=== PATIENT | female | born 1995 ===

== ENCOUNTER 2022-08-27 16:38 | Emergency (ER) | payer OTHER ==
[~2022-08-27] VITALS: Ht 165.1 cm; Wt 78.5 kg
== END 2022-08-27 19:48 | disposition home or self-care (01) ==
LOC: ER 16:38
DX: O20.9 Hemorrhage in early pregnancy, unspecified (principal); Z3A.01 Less than 8 weeks gestation of pregnancy; Z88.2 Allergy status to sulfonamides

== ENCOUNTER 2022-11-28 12:48 | Outpatient (CLI) | payer OTHER | END 2022-11-28 14:27 | disposition home or self-care (01) | LOC: PRENATAL 12:48 | PROVIDERS: ATTEND Obstetrics & Gynecology Maternal & Fetal Medicine | DX: O35.3XX0 Maternal care for (suspected) damage to fetus from viral disease in mother, not applicable or unspecified (principal); O44.00 Complete placenta previa NOS or without hemorrhage, unspecified trimester; Z3A.19 19 weeks gestation of pregnancy ==

== ENCOUNTER 2022-12-21 13:58 | Outpatient (CLI) | payer OTHER ==
[2022-12-21] MEDS ORDERED: DIALYVITE 800-1 EACH PO (14:06)
[2022-12-21] MEDS ORDERED: OCUVITE EYE HE1 EACH PO (14:06)
[2022-12-21] MEDS ORDERED: PRENATAL TABLE1 EAC1 PO (14:06)
== END 2022-12-22 14:31 | disposition home or self-care (01) ==
LOC: OBS/DEL 13:58
PROVIDERS: Obstetrics & Gynecology; ATTEND Obstetrics & Gynecology
DX: O26.852 Spotting complicating pregnancy, second trimester (principal); O23.32 Infections of other parts of urinary tract in pregnancy, second trimester; B95.7 Other staphylococcus as the cause of diseases classified elsewhere; N39.0 Urinary tract infection, site not specified; Z3A.22 22 weeks gestation of pregnancy; Z88.2 Allergy status to sulfonamides

== ENCOUNTER 2023-04-14 14:11 | Outpatient (CLI) | payer OTHER ==
[~2023-04-14 14:11] MED LIST: DIALYVITE 800-1 EACH PO; OCUVITE EYE HE1 EACH PO; PRENATAL TABLE1 EAC1 PO
[2023-04-14 16:17] LABS: URINE APPEARANCE Clear; URINE BILIRRUBIN Negative (NEGATIVE); URINE BLOOD Large; URINE COLOR Dark Yellow; URINE GLUCOSE Negative (NEGATIVE); URINE LEUKOCYTE Trace; URINE NITRATE Negative; URINE PROTEIN Negative (NEGATIVE)
[2023-04-14 16:20] LABS: HEMATOCRIT 36.9 % (36.0-45.00); HEMOGLOBIN 12.9 g/dL (12.0-15.00); MEAN CELL VOLUME 90.2 fL (80.00-100.00); MEAN CORPUSCULAR HEMOGLOBIN 31.6 pg (27.00-32.0); MEAN CORPUSCULAR HGB CONC 35.1 g/dl (32.0-36.0); PLATELET COUNT 160 K/uL (150-450); RED BLOOD COUNT 4.09 M/uL (4.00-6.00); RED CELL DISTRIBUTION WIDTH 12.6 % (11.5-14.5)
[2023-04-14 16:21] LABS: URINE BACTERIA 201.5 uL (0.0-1933); URINE EPITHELIAL CELLS 13.2 uL (0.0-38.8); URINE WBC 8.8 uL (0.0-23.2)
== END 2023-04-14 18:49 | disposition home or self-care (01) ==
LOC: OBS/DEL 14:11
PROVIDERS: ATTEND Obstetrics & Gynecology
DX: O26.849 Uterine size-date discrepancy, unspecified trimester (principal); O36.8199 Decreased fetal movements, unspecified trimester, other fetus; O26.93 Pregnancy related conditions, unspecified, third trimester; Z3A.38 38 weeks gestation of pregnancy

== ENCOUNTER 2023-04-22 10:35 | Inpatient (IN) | payer OTHER ==
[~2023-04-22] VITALS: Ht 165.1 cm; Wt 3.2 kg
[2023-04-22 11:38] LABS: URINE APPEARANCE Clear; URINE BILIRRUBIN Negative (NEGATIVE); URINE BLOOD Negative; URINE COLOR Yellow; URINE GLUCOSE Negative (NEGATIVE); URINE LEUKOCYTE Negative; URINE NITRATE Negative; URINE PROTEIN Negative (NEGATIVE); URINE UROBILINOGEN 0.2 E.U./dl
[2023-04-22 11:40] LABS: URINE BACTERIA 318.6 uL (0.0-1933); URINE EPITHELIAL CELLS 19.3 uL (0.0-38.8); URINE RBC 2.2 uL (0.0-20.8); URINE WBC 14.8 uL (0.0-23.2)
[2023-04-22 11:42] LABS: HEMATOCRIT 37.3 % (36.0-45.00); HEMOGLOBIN 12.8 g/dL (12.0-15.00); MEAN CELL VOLUME 91.9 fL (80.00-100.00); MEAN CORPUSCULAR HEMOGLOBIN 31.7 pg (27.00-32.0); MEAN CORPUSCULAR HGB CONC 34.4 g/dl (32.0-36.0); PLATELET COUNT 189 K/uL (150-450); RED BLOOD COUNT 4.06 M/uL (4.00-6.00); RED CELL DISTRIBUTION WIDTH 12.6 % (11.5-14.5)
[2023-04-22 12:04] LABS: INR 0.95
[2023-04-22 12:08] LABS: BILIRUBIN TOTAL 0.35 mg/dL (0.3-1.2); CALCIUM 9.2 mg/dL (8.5-10.1); CREATININE SERUM 0.57 mg/dL (0.55-1.02); GFR 127.23; GLOBULINA 4.1 G/DL (2.4-3.5); POTASSIUM 4.45 mEq/L (3.5-5.1); TOTAL PROTEIN 7.1 gm/dL (6.4-8.2)
[2023-04-23 15:00] LABS: ABG pCO2 68.8 mmHg (35-45)
[2023-04-23 15:01] LABS: ABG PO2 17.7 mmHg (80-100); BASE EXCESS -3.1 mmol/l; BICARBONATE 26.6 mmol/l (23-25); Tco2 28.7 mmol/l; o2 21 %
[2023-04-23 18:29] LABS: HEMATOCRIT 33.5 % (36.0-45.00); HEMOGLOBIN 11.4 g/dL (12.0-15.00); MEAN CELL VOLUME 91.6 fL (80.00-100.00); MEAN CORPUSCULAR HEMOGLOBIN 31.2 pg (27.00-32.0); MEAN CORPUSCULAR HGB CONC 34.1 g/dl (32.0-36.0); PLATELET COUNT 177 K/uL (150-450); RED BLOOD COUNT 3.66 M/uL (4.00-6.00); RED CELL DISTRIBUTION WIDTH 12.2 % (11.5-14.5)
== END 2023-04-25 16:11 | disposition home or self-care (01) | DRG 788 ==
LOC: LDR 10:35 → O/R 04-23 12:32 → OB/GYN 04-23 13:44
PROVIDERS: ADMIT Obstetrics & Gynecology; ATTEND Obstetrics & Gynecology
PROC: 3E0P7VZ Introduction of Hormone into Female Reproductive, Via Natural or Artificial Opening (ICD-10-PCS; 2023-04-22)
PROC: 4A1HXCZ Monitoring of Products of Conception, Cardiac Rate, External Approach (ICD-10-PCS; 2023-04-22)
PROC: 3E033VJ Introduction of Other Hormone into Peripheral Vein, Percutaneous Approach (ICD-10-PCS; 2023-04-23)
PROC: 10D00Z1 Extraction of Products of Conception, Low, Open Approach (ICD-10-PCS; principal; 2023-04-23 11:00)
DX: O36.8330 Maternal care for abnormalities of the fetal heart rate or rhythm, third trimester, not applicable or unspecified (principal); O75.89 Other specified complications of labor and delivery; Z3A.39 39 weeks gestation of pregnancy; Z37.0 Single live birth; Z20.822 Contact with and (suspected) exposure to COVID-19